=== PATIENT | male | born 1970 | race African-American/Black ===

== ENCOUNTER 2016-11-08 02:29 | Emergency (ER) | payer SELFPAY ==
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
== END 2016-11-08 02:50 | disposition home or self-care (01) ==
LOC: ER 02:29
DX: Z02.89 Encounter for other administrative examinations (principal); F10.129 Alcohol abuse with intoxication, unspecified; I10 Essential (primary) hypertension; Z79.899 Other long term (current) drug therapy